=== PATIENT | male | born 1980 | race Caucasian/White ===

== ENCOUNTER 2023-07-22 21:24 | Emergency (ER) | payer BC, SELFPAY ==
[2023-07-22] VITALS (10 sets, daily range): BP systolic 137–163; BP diastolic 71–89; PULSE 79–92; RESP 18; TEMP 36.2; O2SAT 96
[2023-07-22] MEDS: Lactated Ringers 1,000 ML 1000 ML IV ×2 (21:41→22:32)
--- NOTE | 2023-07-22 21:42 | ED.GENADUL_ITS ---
Discharge Plan Disposition Patient Disposition: Home Condition: Improving Discharge Details Clinical Impression: Hyperglycemia due to type 2 diabetes mellitus Primary Care Provider: Joana Horton ED Provider: Sweetie Lopez Home Meds and New Rx's Prescriptions: Continued Simponi 50 MG/0.5 ML syringe 1 ml IM DIRECTED oxycodone-acetaminophen 1 EACH tablet 1 ea PO Q6H PRN PRN (Reason: severe pain) Qty: 6 0RF glyburide 5 mg tablet metformin 1,000 mg tablet 1,000 mg BID bupropion HCl 150 mg tablet extended release 24 hr 150 mg PO DAILY atorvastatin 20 mg tablet 10 mg DAILY Patient Comments: TAKE 1 TABLET BY MOUTH DAILY escitalopram oxalate 10 mg tablet 10 mg DAILY Patient Comments: TAKE 1 TABLET BY MOUTH DAILY FOR MOOD Discharge Instructions Instructions: Diabetic Hyperglycemia (ED) Additional Instructions: Continue to monitor your blood sugar every hour. Increase oral fluids. We have brought your blood sugar down to 300. Call your PCP tomorrow to schedule an appointment or to get additional instructions. Take your previously prescribed medications as directed. Follow up with primary care provider in 3-5 days. Return to ED sooner if any worsening or concerns. Return to the ER for sugars greater than 400 or any concerns. Referrals: Joana Horton [Primary Care Provider] - 2 days HPI General Mode of arrival: ambulatory . Date/Time Provider Initiated Documentation: 07/22/23 21:35 . Limitations to Documentation: no limitations . Information obtained by: patient, RN notes reviewed and old records reviewed . HPI Narrative: 43-year-old male with past medical history of type 2 diabetes mellitus presents to the ED ER after having a reading of high prior to arrival. Patient reports that he thinks he may have had a regular Coke instead of a diet while at dinner. BGL upon arrival in triage is 596. Patient reports feeling slightly nauseous with a dry mouth. Denies any vomiting or diarrhea. Does stake Metformin 100mg BID, Glyburide and one other medication. He did take those as prescribed. Related Data Home Medications Medication Instructions Recorded Confirmed golimumab 50 mg/0.5 mL 1 ml IM DIRECTED 06/11/14 07/22/23 subcutaneous syringe (Simponi) oxycodone-acetaminophen 5 mg-325 1 ea PO Q6H PRN PRN severe pain ##6 07/28/15 07/22/23 mg tablet atorvastatin 20 mg tablet 10 mg DAILY 07/22/23 bupropion HCl 150 mg 24 hr tablet, 150 mg PO DAILY 07/22/23 07/22/23 extended release escitalopram oxalate 10 mg tablet 10 mg DAILY 07/22/23 glyburide 5 mg tablet mg 07/22/23 metformin 1,000 mg tablet 1,000 mg BID 07/22/23 Previous Rx's Medication Instructions Recorded oxycodone-acetaminophen 5 mg-325 1 ea PO Q6H PRN PRN severe pain ##6 07/28/15 mg tablet Allergies Allergy/AdvReac Type Severity Reaction Status Date / Time certolizumab pegol Allergy Intermediate Skin Rash Unverified 07/22/23 21:45 [From Cimzia] cats Allergy Mild Itching Uncoded 07/22/23 21:45 General Stated Complaint: GenMedical KAYLIE: 3 Review of Systems All systems reviewed & are unremarkable except as noted in HPI and below Gastrointestinal Gastrointestinal: Denies diarrhea, Reports nausea and Denies vomiting Endocrine Endocrine: Reports as per HPI and Reports other (High BGL) Exam Narrative Exam Narrative: Constitutional: Alert and oriented x3. Appears stated age. Normal body habitus. Head: Normocephalic, no trauma. Eyes: Pupils PERRL, Red reflex noted, EOM's intact. Eyelids symmetrical without lesions, discharge, or swelling. ENT: Bilateral TM's WNL, External ear normal to inspection, no mastoid TTP, swelling, or erythema, Nasal turbinates WNL, no nasal discharge. Normal dentition, Posterior pharynx WNL, no exudate. Chest: RRR, Normal S1, S2, distal pulses intact. Resp: Lungs clear to auscultation bilaterally, no wheezes, rales, or rhonchi. Abdomen: Soft, non-distended, Normoactive bowel sounds all 4 quads. Musculoskeletal: Normal gait, Moves all 4 extremities without difficulty. Skin: No suspicious rashes or lesions. Capillary refill less than 2 sec. Neurologic: Cranial nerves II-XII intact. Alert and oriented x 3. Motor: No deficits noted. Sensory: Intact bilaterally all 4 extremities. Hematologic/Lymphatic: No ecchymosis, no lymphadenopathy. Course Vital Signs Vital signs: Vital Signs Temperature 36.2 C L 07/22/23 21:28 Pulse 92 H 07/22/23 21:28 Respiratory Rate 18 07/22/23 21:28 Blood Pressure 163/89 H 07/22/23 21:28 Pulse Oximetry 96 07/22/23 21:28 Temperature 36.2 C L 07/22/23 21:28 Pulse 92 H 07/22/23 21:28 Respiratory Rate 18 07/22/23 21:28 Respiratory Effort Normal 07/22/23 21:31 Blood Pressure 163/89 H 07/22/23 21:28 Pulse Oximetry 96 07/22/23 21:28 Oxygen Delivery Method Room Air 07/22/23 21:28 Oxygen Flow Rate 0 07/22/23 21:28 Pain Level 0 07/22/23 21:28 Medical Decision Making 43-year-old male with past medical history of type 2 diabetes mellitus presents to the ED ER after having a reading of high prior to arrival. Patient reports that he thinks he may have had a regular Coke instead of a diet while at dinner. BGL upon arrival in triage is 596. Patient reports feeling slightly nauseous with a dry mouth. Denies any vomiting or diarrhea. Does stake Metformin 100mg BID, Glyburide and one other medication. He did take those as prescribed. Liter of LR ordered, CBC CMP urinalysis at this time. 12 units of regular insulin IV ordered after 2 L of LR. At this time it does not appear to be DKA, sodium 133 potassium 4.2 Is 9.9, creatinine 1.4, glucose 515, magnesium 1.7 urinalysis shows greater than thousand glucose. No ketones noted in the urinalysis. 2258: Will continue to monitor BGL every hour after the above interventions. Patient continues to have BGL over 500 will evaluate after the 12 units of insulin. Will consider insulin drip if needed. BGL 334 after Insulin will discharge home with follow up care and return instructions. Discussed plan of care lab results with patient and family who verbalized understanding. They feel comfortable being discharged home. This text was generated using [employer] system, please disregard any oddities of phrase or misspellings. Medical Records Medical records reviewed: Yes I reviewed the patient's medical records. Lab Data Lab results reviewed: Yes I reviewed the patient's lab results. Labs: Laboratory Tests Range/Units 07/22/23 07/22/23 21:30 22:17 WBC (4.4-10.8) 10^3/uL 6.89 RBC (4.36-5.78) 10^6/uL 4.93 Hgb (13.5-17.5) g/dL 14.1 Hct (40.0-50.0) % 41.9 MCV (80-95) fL 85 MCH (27.0-33.0) pg 28.6 MCHC (32.0-36.0) % 33.7 RDW (11.8-14.1) % 12.4 Plt Count (130-400) 10^3/uL 237 MPV (8.0-11.0) fL 11.1 H Immature Gran % % 0.1 Neutrophils % % 57.8 Lymphocytes % % 26.6 Monocytes % % 10.2 Eosinophils % % 4.6 Basophils % % 0.7 Nucleated RBC % (0.0-0.3) % 0.0 Absolute Neutrophils (1.2-6.7) 10^3/uL 3.98 Absolute Lymphocytes (1.2-3.4) 10^3/uL 1.83 Absolute Monocytes (0.1-0.8) 10^3/uL 0.70 Absolute Eosinophils (0.0-0.7) 10^3/uL 0.32 Absolute Basophils (0.0-0.2) 10^3/uL 0.05 Sodium (136-145) mmol/L 133 L Potassium (3.5-5.1) mmol/L 4.2 Chloride (98-107) mmol/L 97 L Carbon Dioxide (21.0-32.0) mmol/L 26.1 Anion Gap (3-11) mmol/L 9.9 BUN (7-18) mg/dL 15 Creatinine (0.70-1.30) mg/dL 1.4 H Est GFR (CKD-EPI 2020) (mL/min/1.73m2) 63.56 Glucose (74-106) mg/dL 515 H* Calcium (8.5-10.1) mg/dL 8.7 Magnesium (1.8-2.4) mg/dL 1.7 L Total Bilirubin (0.2-1.0) mg/dL 0.7 AST (15-37) U/L 8 L ALT (16-63) U/L 28 Alkaline Phosphatase (46-116) U/L 97 Total Protein (6.4-8.2) g/dL 6.8 Albumin (3.4-5.0) g/dL 3.5 Urine Color (Yellow) Yellow Urine Clarity (Clear) Clear Urine pH (5-8) 6.0 Ur Specific [place] (1.005-1.025) 1.010 Urine Protein (Neg-Trace) mg/dL Negative Urine Ketones (Negative) mg/dL Negative Urine Blood (Negative) Negative Urine Nitrite (Negative) Negative Urine Bilirubin (Negative) Negative Urine Urobilinogen (Up to 0.2) mg/dL 0.2 Ur Leukocyte Esterase (Negative) Negative Urine RBC (0-2) HPF Negative Urine WBC (0-5) HPF Negative Ur Epithelial Cells (Negative) HPF Rare Urine Crystals (Negative) HPF Negative Urine Bacteria (Negative) HPF Negative Urine Casts (Negative) LPF Negative Urine Mucus (Negative) Negative Ur Culture Indicated? No Urine Glucose (Negative) mg/dL >=1000 H Quality:SDOH Health Related Social Needs: No Data to Display PFSH All Active Problems (Updated 07/23/23 @ 00:03 by Sweetie Lopez NP) Hyperglycemia due to type 2 diabetes mellitus (Acute) Social History Smoking/Tobacco Use Status: Former Tobacco Use Smoking risk assessment performed?: Yes Drug use: Never Do you feel safe at home: Yes
[2023-07-22 21:45] LABS: Abs Immature Grans 0.01 10^3/uL (0.0-0.06); Absolute Basophil Count 0.05 10^3/uL (0.0-0.2); Absolute Eosinophil Count 0.32 10^3/uL (0.0-0.7); Absolute Lymphocyte Count 1.83 10^3/uL (1.2-3.4); Absolute Neutrophil Count 3.98 10^3/uL (1.2-6.7); Basophils % 0.7 %; Eosinophils % 4.6 %; HCT 41.9 % (40.0-50.0); HGB 14.1 g/dL (13.5-17.5); Immature Grans % 0.1 %; Lymphocytes % 26.6 %; MCH 28.6 pg (27.0-33.0); MCHC 33.7 % (32.0-36.0); MCV 85 fL (80-95); MPV 11.1 fL (8.0-11.0); Monocytes % 10.2 %; Neutrophils % 57.8 %; Platelet Count 237 10^3/uL (130-400); RBC 4.93 10^6/uL (4.36-5.78); RDW 12.4 % (11.8-14.1); RDW-SD 38.2 fL; WBC 6.89 10^3/uL (4.4-10.8)
[2023-07-22 22:02] LABS: ALT 28 U/L (16-63); AST 8 U/L (15-37); Albumin 3.5 g/dL (3.4-5.0); Alkaline Phosphatase 97 U/L (46-116); Anion Gap 9.9 mmol/L (3-11); BUN 15 mg/dL (7-18); Bilirubin, Total 0.7 mg/dL (0.2-1.0); CO2 26.1 mmol/L (21.0-32.0); CREATININE 1.4 mg/dL (0.70-1.30); Calcium 8.7 mg/dL (8.5-10.1); Chloride 97 mmol/L (98-107); Estimated GFR 63.56 (mL/min/1.73m2); Magnesium 1.7 mg/dL (1.8-2.4); Potassium 4.2 mmol/L (3.5-5.1); Sodium 133 mmol/L (136-145); Total Protein 6.8 g/dL (6.4-8.2)
[2023-07-22 22:18] LABS: Glucose 515 mg/dL (74-106)
[2023-07-22 22:26] LABS: Bilirubin Negative (Negative); Blood Negative (Negative); Clarity Clear (Clear); Glucose >=1000 mg/dL (Negative); Ketones Negative (Negative); Leukocyte Esterase Negative (Negative); Nitrite Negative (Negative); Urobilinogen 0.2 mg/dL (Up to 0.2)
[2023-07-22 22:35] LABS: Bacteria Negative HPF (Negative); C & S Indicated? No; Casts Negative LPF (Negative); Crystals Negative HPF (Negative); Epithelial Cells Rare HPF (Negative); Mucus Negative (Negative); RBC Negative HPF (0-2); WBC Negative HPF (0-5)
[2023-07-22] MEDS: Insulin REGULAR-Human 100 UNITS/ML UNIT 12 UNITS IV (23:27)
[2023-07-23] VITALS: BP 121/77; PULSE 90
[2023-07-23] MEDS: Normal Saline 1,000 ML 150 ML IV (00:02)
[2023-07-23 00:10] VITALS: BP 121/77; PULSE 90; RESP 18; O2SAT 97
== END 2023-07-23 00:10 | disposition home or self-care (01) ==
PROVIDERS: Emergency Provider Registered Nurse Emergency
DX: E11.65 Type 2 diabetes mellitus with hyperglycemia (principal); Z79.4 Long term (current) use of insulin; Z79.84 Long term (current) use of oral hypoglycemic drugs; Z87.891 Personal history of nicotine dependence
CPT/HCPCS: 36415; 80053; 82962; 96360; 96361; 99284; 81003; 81015; 83735; 85025; 99283; J1815